=== PATIENT | female | born 1995 | race Caucasian/White ===

== ENCOUNTER 2017-01-04 20:55 | Emergency (ER) | payer BC ==
[~2017-01-04] VITALS: Ht 160 cm; Wt 60.1 kg
[2017-01-04 21:02] VITALS: TEMP 37.1; Ht 160 cm; Wt 60.1 kg
[2017-01-04] MEDS ORDERED: OXYCODONE HCL IR 5 MG TAB (IMMEDIATE RELEASE) PO STA (22:13)
[2017-01-04] MEDS ORDERED: XYLOCAINE 1%/SOD BICARB 20 ML VIAL INFIL ONE (22:15)
[2017-01-04] MEDS ORDERED: OXYCODONE IR HOME PACK PO ONE ×2 (22:15→22:45)
[2017-01-04] MEDS ORDERED: HYDR2.5C37 TOP (22:41)
--- NOTE | 2017-01-04 22:43 | EMERGENCY ROOM VISIT NOTE ---
History First contact with patient: 21:53 Chief Complaint: RECTAL PAIN Stated Complaint: HEMORRHOID, UNABLE TO SIT OR WALK, PAINFUL Nursing Triage Summary: pt reports pain from hemrhoid, states she has had it "for awhile" but pain is worse today. reports bleeding with BM. denies having cream or medication at home. exam performed by OTIS Brown with this RN at bedside. pt rates pain 10/10 History of Present Illness The patient is a 21 year old female who presents to the Emergency Room with complaints of rectal pain. The patient states that she has had problems with hemorrhoids for "a while." She states that the pain has been worsening today and rates her current discomfort a 10/10. Her pain has been worse with sitting or any movement. She is not using any medications at home. She has been able to have bowel movements. She denies any blood in her bowel movements. The patient denies constipation. Review of Systems A complete 10-point Review of Systems was discussed with the patient, with pertinent positives and negatives listed in the History of Present Illness. All remaining Review of Systems questions can be considered negative unless otherwise specified. Social History Smoking Status: Never Smoker Current/Historical Medications Scheduled Hydrocortisone 2.5% (Rectal) (Anusol-Hc 2.5%), 1 APPLN TOP BID Scheduled PRN Oxycodone Ir (Roxicodone Ir), 1-2 TAB PO Q4H PRN for Pain Allergies Coded Allergies: No Known Allergies (Unverified , 01/04/17) Physical Exam Vital Signs Date Time Temp Pulse Resp B/P Pulse Ox O2 Delivery O2 Flow Rate FiO2 01/04/17 22:57 75 18 117/76 96 01/04/17 21:02 37.1 89 18 114/78 96 Room Air Physical Exam VITALS: Vitals are noted on the nurse's note and reviewed by myself. Vital signs stable. GENERAL: This is a 21-year-old female, in no acute distress, nondiaphoretic, well-developed well-nourished. HEART: Regular rate and rhythm without murmurs gallops or rubs. LUNGS: Clear to auscultation bilaterally without wheezes, rales or rhonchi. No retractions or accessory muscle use. ABDOMEN: Positive bowel sounds x 4. Soft, nontender. RECTAL: There are 2 very large hemorrhoids which appear to be thrombosed and surround the entire opening of the rectum. No bleeding. NEURO: Patient was alert and oriented to person place and time. Medical Decision & Procedures Medications Administered Medications (Trade) Dose Ordered Sig/Karen Route Start Time Stop Time Status Last Admin Dose Admin Oxycodone HCl (Roxicodone Immediate Rel Tab) 5 mg NOW STAT PO 01/04/17 22:13 01/04/17 22:14 DC 01/04/17 22:18 5 MG Lidocaine HCl (Buffered Lidocaine 1% Inj) 20 ml ONE ONCE INFIL 01/04/17 22:15 01/04/17 22:16 DC 01/04/17 22:19 20 ML Oxycodone HCl (Roxicodone Immediate Rel 5MG Home Pack) 1 homepack UD ONCE PO 01/04/17 22:45 01/04/17 22:46 DC 01/04/17 22:49 1 HOMEPACK Procedure Verbal consent was obtained to perform the procedure. The hemorrhoids were cleansed with Betadine. 4 mL of 1% buffered lidocaine were used to anesthetize the hemorrhoids. They were incised with a #11 scalpel blade and small blood clots were removed. The area was cleaned with sterile saline and dressed with bacitracin and a bulky bandage. The patient tolerated the procedure well. Medical Decision The patient was evaluated as above. She does have 2 very large hemorrhoids which are thrombosed. Incision was performed and WERE evacuated. Conservative measures were discussed with the patient and she was given information for general surgery follow-up. She was given a prescription for a short course of pain medication. She was told to take Colace to help with bowel movements. She will return for any new/worsening symptoms. She verbalized understanding of my assessment and treatment plan was discharged home in good condition. [place] Drug Monitoring Program Search Results: patient reviewed within database, no issues identified Impression Primary Impression: Hemorrhoids Departure Information Dispostion Home / Self-Care Condition GOOD Prescriptions Oxycodone Ir (Roxicodone Ir) 5 Mg Tab 1-2 TAB PO Q4H Y for Pain, #12 TAB For Initial Treatment Prov: Stephanie Cunningham PA-C 01/04/17 Hydrocortisone 2.5% (Rectal) (ANUSOL-HC 2.5%) 2.5 % Cre 1 APPLN TOP BID, #30 GM 1 Refill Prov: Stephanie CunninghamOTIS 01/04/17 Referrals No Doctor, Assigned (PCP) Adam De Jesus M.D. Patient Instructions ED Hemorrhoids, Hemorrhoids Self Care, Count Includes [facility] Additional Instructions Use Colace daily to keep the stool soft. Use the Anusol cream twice a day. You may also use Tucks pads, which can help with soothing relief. Follow-up with a general surgeon for further evaluation.
[2017-01-04] MEDS ORDERED: OXYC1TAB3 PO (22:45)
[2017-01-04 22:57] VITALS: BP 117/76; PULSE 75; O2SAT 96
== END 2017-01-04 22:57 | disposition home or self-care (01) ==
LOC: C.EDB 20:58
DX: K64.9 Unspecified hemorrhoids (principal)

== ENCOUNTER 2017-09-03 20:19 | Emergency (ER) | payer BC, OTHER ==
[~2017-09-03] VITALS: Ht 160 cm; Wt 59.4 kg
[~2017-09-03 20:19] MED LIST: HYDR2.5C37 TOP
[2017-09-03 20:25] VITALS: Ht 160 cm; Wt 59.4 kg
[2017-09-03] MEDS ORDERED: BCPILLS PO (20:52)
[2017-09-03] MEDS ORDERED: VALA500T39 PO (20:52)
[2017-09-03] MEDS ORDERED: ACETAMINOPHEN 500 MG TAB PO STA (21:04)
[2017-09-03] MEDS ORDERED: IBUPROFEN 600 MG TAB PO STA (21:04)
[2017-09-03] MEDS ORDERED: SODIUM CHLORIDE 0.9% 1000ML 1,000 ML IV ONE (21:15)
--- NOTE | 2017-09-03 21:19 | DIAGNOSTIC IMAGING REPORT ---
CHEST ONE VIEW PORTABLE CLINICAL HISTORY: 21 years-old Female presenting with fever cough. TECHNIQUE: Portable upright AP view of the chest was obtained. COMPARISON: None. FINDINGS: Cardiomediastinal silhouette normal. Lungs and pleural spaces clear. Mild scoliotic curvature of the thoracic spine. Upper abdomen normal. IMPRESSION: 1. No acute cardiopulmonary disease. Electronically signed by: Neville Barriga M.D. 09/03/2017 9:17 PM Dictated Date/Time: 09/03/2017 9:16 PM
--- NOTE | 2017-09-03 21:35 | EMERGENCY ROOM VISIT NOTE ---
History First contact with patient: 20:33 Chief Complaint: OTHER COMPLAINT Stated Complaint: FEVER, SORE THROAT, BLISTER IN VAGINA History of Present Illness The patient is a 21 year old female who presents to the Emergency Room with complaints of fever, congestion and now a vaginal lesion. The fever started approximately 1 week ago. It was as high as 102F. The patient has been taking Tylenol and ibuprofen with minimal relief. She also reports a sore throat and a mild, nonproductive cough. The patient noticed that she had some irritation in her vulvar area 2 days ago. She reports that he lesion has erupted over the last day. The patient was seen at [facility] yesterday. A culture was taken. She was told that it possibly could be herpes. She was given antivirals, which she has been taking with minimal relief of her symptoms. She is currently sexually active with one female partner. She does not use any form of protection. She denies any vaginal discharge or lower abdominal pain. No urinary symptoms. Review of Systems 10 system review performed and negative unless noted in HPI or below Past Medical/Surgical History Otherwise healthy Social History Smoking Status: Never Smoker Marital Status: in relationship Occupation Status: [employer] student Current/Historical Medications Scheduled Control Pills ( Control Pills), 1 TAB PO DAILY Valacyclovir Hcl (Valtrex), 500 MG PO BID Physical Exam Vital Signs Date Time Temp Pulse Resp B/P (MAP) Pulse Ox O2 Delivery O2 Flow Rate FiO2 17 20:25 37.2 108 16 112/70 99 Room Air Physical Exam VITALS: Vitals are noted on the nurse's note and reviewed by myself. Vital signs stable. GENERAL: 21-year-old female, in no acute distress, nondiaphoretic, well- developed well-nourished. SKIN: The skin was without rashes, HEAD: Normocephalic atraumatic. EARS: External auditory canals clear, tympanic membranes pearly tyler without erythema or effusion bilaterally. EYES: Conjunctivae without injection, sclerae without icterus. Extraocular movements intact. NOSE: No nasal discharge noted. No sinus tenderness. MOUTH: Mucous membranes slightly dry.. Tonsils are not enlarged. Pharynx without erythema or exudate. Uvula midline. Airway patent. Tongue does not deviate. NECK: Supple without nuchal rigidity. No lymphadenopathy. Cervical spine is nontender. No JVD. HEART: Regular rate and rhythm without murmurs gallops or rubs. LUNGS: Clear to auscultation bilaterally without wheezes, rales or rhonchi. No accessory muscle use. ABDOMEN: Positive bowel sounds x 4.Soft, nontender, without organomegaly. No guarding or rebound tenderness. MUSCULOSKELETAL: No muscle atrophy, erythema, or edema noted. Strength 5/5 throughout. : External genitalia reveal a 1 cm ulceration to the labium minora. No significant vaginal discharge or odor noted. NEURO: Patient was alert and oriented to person place and time. Normal sensation to touch. No focal neurological deficits. Medical Decision & Procedures Laboratory Results 09/03/17 21:34 Red Blood Count 4.78, Mean Corpuscular Volume 78.7, Mean Corpuscular Hemoglobin 26.6, Mean Corpuscular Hemoglobin Concent 33.8, Mean Platelet Volume 10.8, Neutrophils (%) (Auto) 76.0, Lymphocytes (%) (Auto) 14.3, Monocytes (%) (Auto) 9.1, Eosinophils (%) (Auto) 0.1, Basophils (%) (Auto) 0.3, Neutrophils # (Auto) 8.35, Lymphocytes # (Auto) 1.57, Monocytes # (Auto) 1.00, Eosinophils # (Auto) 0.01, Basophils # (Auto) 0.03 09/03/17 21:34 Test 09/03/17 21:15 09/03/17 21:34 09/03/17 21:42 09/03/17 21:49 Urine Color YELLOW Urine Appearance CLEAR (CLEAR) Urine pH 5.0 (4.5-7.5) Urine Specific [place] 1.035 (1.000-1.030) Urine Protein TRACE (NEG) Urine Glucose (UA) NEG (NEG) Urine Ketones TRACE (NEG) Urine Occult Blood 1+ (NEG) Urine Nitrite NEG (NEG) Urine Bilirubin NEG (NEG) Urine Urobilinogen NEG (NEG) Urine Leukocyte Esterase TRACE (NEG) Urine WBC (Auto) 10-30 /hpf (0-5) Urine RBC (Auto) 5-10 /hpf (0-4) Urine Hyaline Casts (Auto) 10-30 /lpf (0-5) Urine Epithelial Cells (Auto) >30 /lpf (0-5) Urine Bacteria (Auto) NEG (NEG) Urine Test NEG (NEG) White Blood Count 10.98 K/uL (4.8-10.8) Red Blood Count 4.78 M/uL (4.2-5.4) Hemoglobin 12.7 g/dL (12.0-16.0) Hematocrit 37.6 % (37-47) Mean Corpuscular Volume 78.7 fL (80-100) Mean Corpuscular Hemoglobin 26.6 pg (25-34) Mean Corpuscular Hemoglobin Concent 33.8 g/dl (32-36) Platelet Count 165 K/uL (130-400) Mean Platelet Volume 10.8 fL (7.4-10.4) Neutrophils (%) (Auto) 76.0 % Lymphocytes (%) (Auto) 14.3 % Monocytes (%) (Auto) 9.1 % Eosinophils (%) (Auto) 0.1 % Basophils (%) (Auto) 0.3 % Neutrophils # (Auto) 8.35 K/uL (1.4-6.5) Lymphocytes # (Auto) 1.57 K/uL (1.2-3.4) Monocytes # (Auto) 1.00 K/uL (0.11-0.59) Eosinophils # (Auto) 0.01 K/uL (0-0.5) Basophils # (Auto) 0.03 K/uL (0-0.2) RDW Standard Deviation 40.0 fL (36.4-46.3) RDW Coefficient of Variation 14.0 % (11.5-14.5) Immature Granulocyte % (Auto) 0.2 % Immature Granulocyte # (Auto) 0.02 K/uL (0.00-0.02) Anion Gap 6.0 mmol/L (3-11) Est Creatinine Clear Calc Drug Dose 114.0 ml/min Estimated GFR () 146.8 Estimated GFR (Non- 126.7 BUN/Creatinine Ratio 16.0 (10-20) Calcium Level 8.6 mg/dl (8.5-10.1) Total Bilirubin 0.4 mg/dl (0.2-1) Aspartate Amino Transf (AST/SGOT) 18 U/L (15-37) Alanine Aminotransferase (ALT/SGPT) 20 U/L (12-78) Alkaline Phosphatase 60 U/L (45-117) Total Protein 8.3 gm/dl (6.4-8.2) Albumin 4.0 gm/dl (3.4-5.0) Globulin 4.3 gm/dl (2.5-4.0) Albumin/Globulin Ratio 0.9 (0.9-2) Medications Administered Medications (Trade) Dose Ordered Sig/Karen Route Start Time Stop Time Status Last Admin Dose Admin Acetaminophen (Tylenol Tab) 1,000 mg NOW STAT PO 09/03/17 21:04 09/03/17 21:07 DC 09/03/17 21:59 1,000 MG Ibuprofen (Motrin Tab) 600 mg ONE STAT PO 09/03/17 21:04 09/03/17 21:07 DC 09/03/17 21:59 600 MG Sodium Chloride 1,000 ml @ 999 mls/hr Q1H1M ONCE IV 09/03/17 21:15 09/03/17 22:15 DC 09/03/17 21:58 999 MLS/HR Ondansetron HCl (Zofran Inj) 4 mg [facility] ONCE .ROUTE 09/03/17 21:50 09/03/17 21:51 DC 09/03/17 21:58 4 MG ED Course Patient was seen and examined Vital signs including blood pressure were reviewed medications list was verified with patient Labs were obtained, and a saline lock was established The patient was medicated with Tylenol and Motrin. She was hydrated with normal saline. She was given 1 dose of Zofran 4 mg IV The results were discussed with the patient. She was understanding. She was feeling better. I reviewed discharge instructions the patient. They voiced understanding and had no further questions. Medical Decision Differential diagnosis: Herpes infection, other STI, viral syndrome, strep pharyngitis, pneumonia, bronchitis This patient is a 21-year-old female presented to the emergency department with a main complaint of a vaginal lesion. On exam, she has an ulcerated lesion present on the labium minora. It was not significantly tender. It appeared unusual for herpes. The patient was already seen at [facility] were cultures were taken. She was put on antiviral medications, which I think are possibly making her nauseous. The patient was given Zofran in the emergency department. She was hydrated with fluids, and treated with Tylenol and ibuprofen. Her urinalysis did come back with 10-30 white blood cells. Since she also is complaining of fever symptoms, I opted to treat her for a UTI. As far as a genital lesion, cultures were taken here in the emergency department. She was instructed to continue lidocaine jelly 3 times daily as needed for discomfort. She was also asked to abstain from sexual activity. She is comfortable with this plan. She was instructed to have her primary care physician or [facility] reevaluate her in the next several days. She was encouraged to return to the emergency department with any new or concerning symptoms. This chart was completed in part utilizing [employer] Speech Voice Recognition software. Attempts were made to minimize the grammatical errors, random word insertions, pronoun errors and incomplete sentences. Any formal questions or concerns about the content, text or information contained within the body of this dictation should be directly addressed to the provider for clarification. Impression Primary Impression: Genital lesion, female Departure Information Dispostion Home / Self-Care Condition GOOD Prescriptions Ondasetron Odt (ZOFRAN ODT) 4 Mg Tab 4 MG SL Q6H for Nausea, #20 TAB Prov: Antonia Whatley PA-C 09/03/17 Cephalexin Monohydrate (Keflex) 500 Mg Cap 500 MG PO QID for 5 Days, #20 CAP Prov: Antonia Whatley PA-C 09/03/17 Referrals [facility] (PCP) Patient Instructions [facility] Additional Instructions You have been evaluated in the emergency department for a lesion in the genital area. Cultures were taken. You will be notified for any abnormal results. You also appeared to have a urinary tract infection. Please take the entire course of antibiotics as prescribed. Zofran 1 tab under the tongue every 6 hours as needed for nausea. Ibuprofen 800 mg and/or Tylenol 1000 mg every 8 hours. You may also alternate these medications for more effective pain relief: Ibuprofen --4 HRS--> Tylenol --4 HRS--> ibuprofen --4 HRS--> Tylenol .... Please follow-up with your primary care physician or your [facility] within the next several days to have a recheck. If the lesion persists, you may need further testing. Please do not hesitate to return to the emergency department with any new, worsening or concerning symptoms
[2017-09-03 21:47] LABS: BASO % 0.3 %; BASO ABS # 0.03 K/uL (0-0.2); COMPLETE YES; EOS % 0.1 %; HEMATOCRIT 37.6 % (37-47); IG% 0.2 %; LYMPH % 14.3 %; LYMPH ABS # 1.57 K/uL (1.2-3.4); MEAN CELL VOLUME 78.7 fL (80-100); MEAN CORPUSCULAR HEMOGLOBIN 26.6 pg (25-34); MEAN CORPUSCULAR HGB CONC 33.8 g/dl (32-36); MEAN PLATELET VOLUME 10.8 fL (7.4-10.4); MONO % 9.1 %; PLATELET COUNT 165 K/uL (130-400); RED BLOOD COUNT 4.78 M/uL (4.2-5.4); WHITE BLOOD COUNT 10.98 K/uL (4.8-10.8)
[2017-09-03] MEDS ORDERED: ONDANSETRON INJ 2 MG/ML 2 ML VIAL ONE (21:50)
[2017-09-03 22:08] LABS: CALCIUM 8.6 mg/dl (8.5-10.1); CREATININE 0.64 mg/dl (0.60-1.20); POTASSIUM 3.7 mmol/L (3.5-5.1)
[2017-09-03 22:11] LABS: ALB/GLOB RATIO 0.9 (0.9-2)
[2017-09-03 22:12] LABS: URINE APPEARANCE CLEAR (CLEAR); URINE BILIRUBIN NEG (NEG); URINE COLOR YELLOW; URINE EPITHELIAL CELL AUTO >30 /lpf (0-5); URINE NITRITE NEG (NEG); URINE SPECIFIC GRAVITY 1.035 (1.000-1.030); UROBILINOGEN NEG (NEG)
[2017-09-03 22:18] LABS: MANUAL MICROSCOPIC REQUIRED? NO; REVIEW REQ? NO
[2017-09-03 22:42] LABS: INFLUENZA A PCR Neg for Influ A (NEG); INFLUENZA B PCR Neg for Influ B (NEG)
[2017-09-03] MEDS ORDERED: CEPHALEXIN MONOHYDRATE 250 MG CAP PO ONE (22:45)
[2017-09-03] MEDS ORDERED: ONDA4TAB10 SL (22:47)
[2017-09-03] MEDS ORDERED: CEPH500C PO (22:47)
[2017-09-03 23:04] VITALS: BP 106/56; PULSE 90; TEMP 37.6; O2SAT 98
== END 2017-09-03 23:06 | disposition home or self-care (01) ==
LOC: C.EDB 20:20 → C.EDC 23:06
DX: N89.8 Other specified noninflammatory disorders of vagina (principal); Z79.3 Long term (current) use of hormonal contraceptives